=== PATIENT | female | born 1950 | race Two or more races ===

== ENCOUNTER 2024-03-06 13:23 | Outpatient (OUT) | payer SELFPAY | END 2024-03-06 13:24 | disposition home or self-care (01) | LOC: PST 13:24 | PROVIDERS: Visit Provider Surgery | DX: Z01.818 Encounter for other preprocedural examination (principal); Z12.11 Encounter for screening for malignant neoplasm of colon ==

== ENCOUNTER 2024-03-12 08:22 | Day surgery (SDC) | payer MEDICARE, OTHER, BC, SELFPAY ==
[2024-03-12 08:35] VITALS: BP 145/87; PULSE 65; TEMP 35.8; O2SAT 100; BMI 40.9
[2024-03-12 08:51] LABS: Glucometer 125 mg/dL (74-106)
[2024-03-12] MEDS: 0.9 % SODIUM CHLORIDE 500 ML 50 ML IV (08:57)
[2024-03-12 09:52] VITALS: BP 142/85; PULSE 74; TEMP 36.3; O2SAT 98
[2024-03-12 10:07] VITALS: BP 151/90; PULSE 67; O2SAT 96
[2024-03-12 10:22] VITALS: BP 151/81; PULSE 67; O2SAT 97
--- NOTE | 2024-03-12 14:33 | W.PM.PROCNOT ---
Date of procedure: 03/12/24 Pre-op diagnosis: screening colonoscopy Post-op diagnosis: other (cecal polyp, sigmoid polyp x2. vargas diverticulosis ) Procedure: Previous colonoscopy: 2017 procedure: colonoscopy with cold forcep biopsy and complete removal via piecemeal of cecal polyp, sigmoid polyp at 60cm and rectosigmoid polyp at 15cm The patient was given IV conscious sedation.? The patient's SPO2 remained above 90% throughout the procedure. The colonoscope was inserted per rectum and advanced under direct vision to the cecum without difficulty.? The prep was good.? Findings: Terminal ileum os: normal Cecum/Ascending colon: cold forcep biopsy and complete removal via piecemeal of .5cm cecal polyp, diverticula Transverse colon: diverticula Descending/Sigmoid colon: cold forcep biopsy and complete removal via piecemeal of sigmoid polyp at 60cm and rectosigmoid polyp at 15cm, diverticula Rectum/Anus: examined in normal and retroflexed positions and was normal Withdrawal Time was (minutes): 20 The colon was decompressed and the scope was removed.? The patient tolerated the procedure well. Recommendations/Plan: 1.? Lifestyle and dietary modifications as discussed 2.? F/U Biopsies 3.? F/U 5 years or sooner depending on pathology results 4.? Discussed with the family Anesthesia: MAC Surgeon: Jaun Andrade Estimated blood loss (mL): 5 Pathology: other (cecal x1, sigmoid x1, rectosigmoidx1 polyps ) Condition: stable Disposition: PACU
== END 2024-03-12 10:22 | disposition home or self-care (01) ==
PROVIDERS: PCP Family Medicine; Visit Provider Surgery
PROC: (CPT 45380; principal; 2024-03-12 09:35)
DX: Z12.11 Encounter for screening for malignant neoplasm of colon (principal); K57.30 Diverticulosis of large intestine without perforation or abscess without bleeding; D12.0 Benign neoplasm of cecum; K63.5 Polyp of colon; Z86.0100 Personal history of colon polyps, unspecified; Z80.0 Family history of malignant neoplasm of digestive organs; Z87.891 Personal history of nicotine dependence; G47.33 Obstructive sleep apnea (adult) (pediatric); J45.909 Unspecified asthma, uncomplicated; E78.5 Hyperlipidemia, unspecified; I10 Essential (primary) hypertension; K21.9 Gastro-esophageal reflux disease without esophagitis; E11.9 Type 2 diabetes mellitus without complications; Z79.84 Long term (current) use of oral hypoglycemic drugs; E66.01 Morbid (severe) obesity due to excess calories; Z68.28 Body mass index [BMI] 28.0-28.9, adult
CPT/HCPCS: 45380; 36415; 82948; J2704